=== PATIENT | female | born 1975 | race Two or more races ===

== ENCOUNTER 2021-09-15 19:00 | Emergency (ER) | payer OTHER ==
[~2021-09-15] VITALS: Ht 165.1 cm; Wt 61.2 kg
[2021-09-15] MEDS ORDERED: SYNTHROID50 MCG (19:35)
[2021-09-15] MEDS ORDERED: FLONASE ALLERG9.9 ML NASAL (22:24)
[2021-09-15] MEDS ORDERED: MEDROLPACK PO (22:24)
[2021-09-15] MEDS ORDERED: SINUS RINSE ST1 EACH NASAL (22:25)
[2021-09-15] MEDS ORDERED: ZYRTEC10 M3 PO (22:25)
== END 2021-09-15 22:59 | disposition home or self-care (01) ==
LOC: ER 19:00
DX: U07.1 COVID-19 (principal); J06.9 Acute upper respiratory infection, unspecified; R51.9 Headache, unspecified; Z88.6 Allergy status to analgesic agent